=== PATIENT | female | born 1980 | race Caucasian/White ===

== ENCOUNTER 2017-04-24 00:11 | Emergency (ER) | payer OTHER ==
[~2017-04-24] VITALS: Ht 175.2 cm; Wt 181.4 kg
[~2017-04-24 00:11] MED LIST: AMOXICILLIN500 M2 PO; AMOXICILLIN500 MG PO; AMOXIL500 MG PO; ATARAX25 MG PO; AUGMENTIN 875875 MG PO; BACTRIM DS 8001 TA1 PO; CLINDAMYCIN150 MG PO; DAILY MULTIPLE1 TA6 PO; DIFLUCAN150 MG PO; ELIMITE 5%60 GM T; FLEXERIL10 MG PO; FLONASE 0.05% 121 EA NAS; FLONASE ALLERG9.9 ML NS; FLONASE0.05 MG/AC NS; FLUONAZOLE200 M1 PO; HYDROCODONE BIT1 T11 PO; K-TAB20 MEQ PO; KEFLEX500 MG PO; LASIX40 MG PO; MACROBID100 M1 PO; MOTRIN800 MG PO; MULTIVITAMIN FO1 CAP PO; MYCOLOG CREAM 115 GM T; NYSTATIN AND TR1 CRE T; OMEPRAZOLE40 MG PO; PHENERGAN25 M1 PO; PREDNICOT20 MG PO; PREDNISONE10 MG PO; PREDNISONE20 M1 PO; PRILOSEC40 MG PO; ROBITUSSIN DM 105 ML PO; ROBITUSSIN-AC 160 ML PO; TORADOL10 MG PO; ULTRAM50 MG PO; VIBRAMYCIN100 MG PO; VISTARIL50 MG PO; VITAMIN D32000 IU PO; ZANTAC 7575 M1 PO; ZITHROMAX Z PA250 MG PO; ZYRTEC10 M1 PO
[2017-04-24 00:16] VITALS: BP 144/79
[2017-04-24 00:53] LABS: BASO % 0.3 % (0.0-1.0); EOS # 0.1 10*3/uL (0.0-0.4); EOS % 1.1 % (1.0-4.0); HEMATOCRIT 49.2 % (37.0-47.0); LYMPH # 1.3 10*3/uL (1.3-4.4); LYMPH % 10.5 % (27.0-41.0); MEAN CELL VOLUME 92.3 fl (81.0-99.0); MEAN CORPUSCULAR HGB CONC 32.5 g/dl (33.0-37.0); MEAN PLATELET VOLUME 11.5 fl (9.6-12.3); MONO # 0.8 10*3/uL (0.1-1.0); MONO % 6.4 % (3.0-9.0); NEUT # 9.8 10*3/uL (2.3-7.9); NEUT % 81.4 % (47.0-73.0); PLATELET COUNT AUTOMATED 210 10*3/uL (130-400); RED BLOOD COUNT 5.33 10*6/uL (4.10-5.10); RED CELL DISTRI WIDTH 14.3 % (0-14.5)
[2017-04-24 01:14] LABS: ALBUMIN 3.4 gm/dl (3.1-4.5); ALKALINE PHOSPHATASE 60 U/L (45-117); BILIRUBIN, TOTAL 0.3 mg/dl (0.2-1.0); BUN 19 mg/dl (7-24); CARBON DIOXIDE 29 mmol/L (21-32); CHLORIDE 106 mmol/L (98-107); EST GLOM FILT AFRICAN AMERICAN > 60 ml/min; GLUCOSE 114 mg/dL (65-99); POTASSIUM 3.7 mmol/L (3.5-5.1); SGOT/AST 13 IU/L (3-35); SGPT/ALT 21 U/L (12-78); SODIUM 141 mmol/L (136-145)
[2017-04-24] MEDS ORDERED: ZOFRAN ODT4 MG SL (01:48)
== END 2017-04-24 03:31 | disposition home or self-care (01) ==
LOC: ED 00:11
PROVIDERS: Physician Assistant
DX: K52.9 Noninfective gastroenteritis and colitis, unspecified (principal); K21.9 Gastro-esophageal reflux disease without esophagitis; F17.200 Nicotine dependence, unspecified, uncomplicated; Z90.49 Acquired absence of other specified parts of digestive tract

== ENCOUNTER 2018-01-26 09:31 | Emergency (ER) | payer OTHER ==
[~2018-01-26] VITALS: Ht 175.2 cm; Wt 215.5 kg
[~2018-01-26 09:31] MED LIST changes: +ZOFRAN ODT4 MG SL
[2018-01-26] MEDS ORDERED: WELLBUTRIN XL150 MG PO (09:43)
[2018-01-26] MEDS ORDERED: HYDR25T PO (09:44)
[2018-01-26 11:28] LABS: BILIRUBIN 1+ (NEGATIVE); BLOOD TRACE-INTACT (NEGATIVE); CLARITY CLEAR (CLEAR); COLOR YELLOW (YELLOW); GLUCOSE NEGATIVE (NEGATIVE); KETONE TRACE (NEGATIVE); LEUKO ESTERASE TRACE (NEGATIVE); NITRITE NEGATIVE (NEGATIVE); SPECIFIC GRAVITY 1.025 (1.005-1.030); UROBILINOGEN 0.2 E.U./dl (0.2-1.0)
[2018-01-26 11:36] LABS: BACTERIA 2+; EPITHELIAL CELLS 16-20; MUCOUS 2+
[2018-01-26] MEDS ORDERED: NAPROSYN500 MG PO (11:58)
[2018-01-26] MEDS ORDERED: CYCLOBENZAPRINE10 MG PO (11:58)
[2018-01-26] MEDS ORDERED: MACROBID100 M1 PO (11:58)
[2018-01-26 12:03] VITALS: BP 149/80
== END 2018-01-26 12:49 | disposition home or self-care (01) ==
LOC: ED 09:31
PROVIDERS: Nurse Practitioner Family
DX: S39.012A Strain of muscle, fascia and tendon of lower back, initial encounter (principal); N39.0 Urinary tract infection, site not specified; Z90.49 Acquired absence of other specified parts of digestive tract; X58.XXXA Exposure to other specified factors, initial encounter; Y93.89 Activity, other specified; Y92.89 Other specified places as the place of occurrence of the external cause; Y99.8 Other external cause status

== ENCOUNTER → 2018-12-15 | Outpatient (CLI) | payer OTHER ==
[~2018-12-15] MED LIST changes: +CYCLOBENZAPRINE10 MG PO; +HYDR25T PO; +NAPROSYN500 MG PO; +WELLBUTRIN XL150 MG PO
== END | disposition home or self-care (01) ==
LOC: MAMMO 08:16
DX: Z12.31 Encounter for screening mammogram for malignant neoplasm of breast (principal); K21.9 Gastro-esophageal reflux disease without esophagitis

== ENCOUNTER → 2019-01-27 | Outpatient (CLI) | payer OTHER | END | disposition home or self-care (01) | LOC: CARD 01-19 10:30 | DX: R01.1 Cardiac murmur, unspecified (principal) ==

== ENCOUNTER → 2019-12-08 | Outpatient (CLI) | payer OTHER | END | disposition home or self-care (01) | LOC: US 09:51 | DX: R22.41 Localized swelling, mass and lump, right lower limb (principal) ==

== ENCOUNTER → 2020-03-08 | Outpatient (CLI) | payer OTHER ==
[~2020-03-08] MED LIST changes: +FUROSEMIDE40 MG PO; +POTASSIUM CHLO20 ME4 PO
== END | disposition home or self-care (01) ==
LOC: COVID19 00:19
DX: Z01.818 Encounter for other preprocedural examination (principal); Z11.59 Encounter for screening for other viral diseases

== ENCOUNTER → 2020-03-15 | Day surgery (SDC) | payer OTHER ==
[~2020-03-15] VITALS: Ht 177.8 cm; Wt 231.3 kg
[~2020-03-15] MED LIST changes: +NORCO 5-325 TA1 EACH PO
[2020-03-15 08:29] VITALS: BP 123/58
[2020-03-15 09:24] VITALS: BP 117/69
[2020-03-15 09:39] VITALS: BP 117/69
[2020-03-15 09:54] VITALS: BP 140/56
== END | disposition home or self-care (01) ==
LOC: SDC 03-12 13:15
DX: D21.21 Benign neoplasm of connective and other soft tissue of right lower limb, including hip (principal); I10 Essential (primary) hypertension; G47.30 Sleep apnea, unspecified; K21.9 Gastro-esophageal reflux disease without esophagitis; F32.9 Major depressive disorder, single episode, unspecified; F17.210 Nicotine dependence, cigarettes, uncomplicated; E66.01 Morbid (severe) obesity due to excess calories; Z68.45 Body mass index [BMI] 70 or greater, adult; Z98.890 Other specified postprocedural states; Z90.49 Acquired absence of other specified parts of digestive tract; Z79.899 Other long term (current) drug therapy

== ENCOUNTER → 2021-06-04 | Outpatient (CLI) | payer OTHER ==
[2021-06-04 12:59] LABS: HEMATOCRIT 47.4 % (37.0-47.0); MEAN CELL VOLUME 94.8 fl (81.0-99.0); MEAN CORPUSCULAR HGB 29.6 pg (27.0-31.0); MEAN CORPUSCULAR HGB CONC 31.2 g/dl (33.0-37.0); MEAN PLATELET VOLUME 11.7 fl (9.6-12.3); RED CELL DISTRI WIDTH 15.4 % (0-14.5); WHITE BLOOD COUNT 9.5 10*3/uL (4.8-10.8)
[2021-06-04 13:20] LABS: ALKALINE PHOSPHATASE 62 U/L (45-117); BUN 17 mg/dl (7-24); CHLORIDE 103 mmol/L (98-107); CREATININE 0.79 mg/dL (0.55-1.02); POTASSIUM 3.7 mmol/L (3.5-5.1); SGOT/AST 12 IU/L (3-35); SGPT/ALT 22 U/L (12-78); SODIUM 139 mmol/L (136-145); TOTAL PROTEIN 7.4 gm/dL (6.4-8.2)
[2021-06-04 13:22] LABS: BETA-HCG, QUANT < 1.0 mIU/mL (1-3)
== END | disposition home or self-care (01) ==
LOC: LAB 11:57
PROVIDERS: ATTEND Obstetrics & Gynecology
DX: Z01.812 Encounter for preprocedural laboratory examination (principal); N93.9 Abnormal uterine and vaginal bleeding, unspecified

== ENCOUNTER 2021-12-23 11:58 | Emergency (ER) | payer OTHER ==
[~2021-12-23] VITALS: Ht 175.2 cm; Wt 231.3 kg
[2021-12-23 12:14] VITALS: BP 152/87
[2021-12-23 12:46] LABS: BASO % 0.5 % (0.0-1.0); EOS # 0.1 10*3/uL (0.0-0.4); EOS % 1.3 % (1.0-4.0); HEMATOCRIT 47.2 % (37.0-47.0); LYMPH # 2.3 10*3/uL (1.3-4.4); MEAN CELL VOLUME 89.9 fl (81.0-99.0); MEAN CORPUSCULAR HGB 26.9 pg (27.0-31.0); MEAN CORPUSCULAR HGB CONC 29.9 g/dl (33.0-37.0); MEAN PLATELET VOLUME 10.9 fl (9.6-12.3); MONO # 0.6 10*3/uL (0.1-1.0); MONO % 7.4 % (3.0-9.0); NEUT # 4.8 10*3/uL (2.3-7.9); NEUT % 61.7 % (47.0-73.0); PLATELET COUNT AUTOMATED 225 10*3/uL (130-400); RED BLOOD COUNT 5.25 10*6/uL (4.10-5.10); RED CELL DISTRI WIDTH 18.2 % (0-14.5); WHITE BLOOD COUNT 7.8 10*3/uL (4.8-10.8)
[2021-12-23 13:05] LABS: ALKALINE PHOSPHATASE 83 U/L (45-117); BUN 20 mg/dl (7-24); CHLORIDE 101 mmol/L (98-107); CREATININE 1.12 mg/dL (0.55-1.02); POTASSIUM 3.3 mmol/L (3.5-5.1); SGOT/AST 20 IU/L (3-35); SGPT/ALT 21 U/L (12-78); SODIUM 140 mmol/L (136-145); TOTAL PROTEIN 7.5 gm/dL (6.4-8.2)
[2021-12-23] MEDS ORDERED: CEPHALEXIN500 M1 PO (17:33)
== END 2021-12-23 17:37 | disposition home or self-care (01) ==
LOC: ED 11:58
PROVIDERS: Physician Assistant
DX: L03.115 Cellulitis of right lower limb (principal); Z79.899 Other long term (current) drug therapy; Z90.49 Acquired absence of other specified parts of digestive tract; Z87.891 Personal history of nicotine dependence; Z90.89 Acquired absence of other organs

== ENCOUNTER → 2022-07-16 | Outpatient (CLI) | payer OTHER ==
[~2022-07-16] MED LIST changes: +CEPHALEXIN500 M1 PO
[2022-07-16 12:14] LABS: HEMATOCRIT 50.9 % (37.0-47.0); MEAN CORPUSCULAR HGB 31.8 pg (27.0-31.0); MEAN CORPUSCULAR HGB CONC 31.8 g/dl (33.0-37.0); MEAN PLATELET VOLUME 12.1 fl (9.6-12.3); RED BLOOD COUNT 5.09 10*6/uL (4.10-5.10); RED CELL DISTRI WIDTH 13.4 % (0-14.5); WHITE BLOOD COUNT 6.4 10*3/uL (4.8-10.8)
[2022-07-16 12:31] LABS: ALKALINE PHOSPHATASE 62 U/L (45-117); BUN 24 mg/dl (7-24); CHLORIDE 105 mmol/L (98-107); CHOLESTEROL 155 mg/dL (<200); CREATININE 0.83 mg/dL (0.55-1.02); POTASSIUM 3.4 mmol/L (3.5-5.1); SGOT/AST 13 IU/L (3-35); SGPT/ALT 23 U/L (12-78); SODIUM 141 mmol/L (136-145); TOTAL PROTEIN 7.8 gm/dL (6.4-8.2); TRIGLYCERIDES 80 mg/dl (<150)
[2022-07-16 12:33] LABS: LDL CHOLESTEROL 85 mg/dL (9-159)
[2022-07-17 15:05] LABS: ANTICARDIOLIPIN AB, IGG, QN <9 GPL U/mL (0-14); ANTICARDIOLIPIN AB, IGM, QN <9 MPL U/mL (0-12); CARDIOLIPIN AB IGA <9 APL U/mL (0-11)
[2022-07-18 11:06] LABS: ACTIVATED PROTEIN C 2.9 ratio (2.2-3.5); ANTI-THROMBIN III ACTIVITY 109 % (75-135); LUPUS REFLEX INTERPRETATION Comment: (.); PLASMIN0GEN ACTIVITY 121 % (70-150); PROTEIN S, FREE 66 % (61-136); PTT-LA 33.5 sec (0.0-51.9)
[2022-07-19 15:05] LABS: BETA-2 GLYCOPROTEIN I AB,IGA 41 (0-25); BETA-2 GLYCOPROTEIN I AB,IGG <9 (0-20); BETA-2 GLYCOPROTEIN I AB,IGM <9 (0-32)
== END ==
LOC: CARD 07-02 10:30 → MAMMO 07-02 11:30 → LAB 10:13
PROVIDERS: ATTEND Physician Assistant
DX: Z12.31 Encounter for screening mammogram for malignant neoplasm of breast (principal); I10 Essential (primary) hypertension; G89.29 Other chronic pain; M25.562 Pain in left knee; M25.561 Pain in right knee; G44.83 Primary cough headache; E66.09 Other obesity due to excess calories; R01.1 Cardiac murmur, unspecified; Z82.49 Family history of ischemic heart disease and other diseases of the circulatory system

== ENCOUNTER → 2023-12-15 | Outpatient (CLI) | payer OTHER | END | disposition home or self-care (01) | LOC: WOUNDCARE 01:42 | PROVIDERS: ATTEND Nurse Practitioner Family | DX: L03.317 Cellulitis of buttock (principal); L98.412 Non-pressure chronic ulcer of buttock with fat layer exposed; L53.9 Erythematous condition, unspecified; K21.9 Gastro-esophageal reflux disease without esophagitis; I10 Essential (primary) hypertension; G47.33 Obstructive sleep apnea (adult) (pediatric); E66.01 Morbid (severe) obesity due to excess calories; F17.210 Nicotine dependence, cigarettes, uncomplicated; Z68.44 Body mass index [BMI] 60.0-69.9, adult; Z90.49 Acquired absence of other specified parts of digestive tract ==

== ENCOUNTER → 2023-12-24 | Outpatient (CLI) | payer OTHER | END | disposition home or self-care (01) | LOC: WOUNDCARE 02:40 | PROVIDERS: ATTEND Nurse Practitioner Family | DX: L03.317 Cellulitis of buttock (principal); L98.412 Non-pressure chronic ulcer of buttock with fat layer exposed; I10 Essential (primary) hypertension; I89.0 Lymphedema, not elsewhere classified; K21.9 Gastro-esophageal reflux disease without esophagitis; L53.9 Erythematous condition, unspecified; G47.33 Obstructive sleep apnea (adult) (pediatric); E66.01 Morbid (severe) obesity due to excess calories; F17.210 Nicotine dependence, cigarettes, uncomplicated; Z68.44 Body mass index [BMI] 60.0-69.9, adult; Z90.49 Acquired absence of other specified parts of digestive tract; Z79.899 Other long term (current) drug therapy ==

== ENCOUNTER → 2023-12-31 | Outpatient (CLI) | payer OTHER | END | disposition home or self-care (01) | LOC: WOUNDCARE 00:53 | PROVIDERS: ATTEND Nurse Practitioner Family | DX: L03.317 Cellulitis of buttock (principal); L98.412 Non-pressure chronic ulcer of buttock with fat layer exposed; I10 Essential (primary) hypertension; I89.0 Lymphedema, not elsewhere classified; K21.9 Gastro-esophageal reflux disease without esophagitis; L53.9 Erythematous condition, unspecified; G47.33 Obstructive sleep apnea (adult) (pediatric); E66.01 Morbid (severe) obesity due to excess calories; F17.210 Nicotine dependence, cigarettes, uncomplicated; Z68.44 Body mass index [BMI] 60.0-69.9, adult; Z90.49 Acquired absence of other specified parts of digestive tract; Z79.899 Other long term (current) drug therapy ==

== ENCOUNTER → 2024-01-07 | Outpatient (CLI) | payer OTHER ==
[~2024-01-07] MED LIST changes: +PROGESTERONE200 M2 PO
== END | disposition home or self-care (01) ==
LOC: WOUNDCARE 00:46
PROVIDERS: ATTEND Nurse Practitioner Family
DX: L03.317 Cellulitis of buttock (principal); L98.412 Non-pressure chronic ulcer of buttock with fat layer exposed; I10 Essential (primary) hypertension; I89.0 Lymphedema, not elsewhere classified; K21.9 Gastro-esophageal reflux disease without esophagitis; L53.9 Erythematous condition, unspecified; G47.33 Obstructive sleep apnea (adult) (pediatric); E66.01 Morbid (severe) obesity due to excess calories; F17.210 Nicotine dependence, cigarettes, uncomplicated; Z68.44 Body mass index [BMI] 60.0-69.9, adult; Z90.49 Acquired absence of other specified parts of digestive tract; Z79.899 Other long term (current) drug therapy

== ENCOUNTER 2024-01-08 14:08 | Emergency (ER) | payer OTHER ==
[~2024-01-08] VITALS: Ht 175.2 cm; Wt 217.7 kg
[~2024-01-08 14:08] MED LIST changes: -PROGESTERONE200 M2 PO
[2024-01-08 14:25] VITALS: BP 151/82
[2024-01-08] MEDS ORDERED: PROGESTERONE200 M2 PO (14:26)
[2024-01-08 15:05] LABS: BASO % 0.7 % (0.0-1.0); EOS # 0.1 10*3/uL (0.0-0.4); HEMATOCRIT 42.4 % (37.0-47.0); LYMPH # 1.6 10*3/uL (1.3-4.4); MEAN CELL VOLUME 98.1 fl (81.0-99.0); MEAN CORPUSCULAR HGB 29.9 pg (27.0-31.0); MEAN CORPUSCULAR HGB CONC 30.4 g/dl (33.0-37.0); MEAN PLATELET VOLUME 10.8 fl (9.6-12.3); MONO # 0.4 10*3/uL (0.1-1.0); MONO % 6.8 % (3.0-9.0); NEUT # 3.9 10*3/uL (2.3-7.9); NEUT % 63.3 % (47.0-73.0); PLATELET COUNT AUTOMATED 187 10*3/uL (130-400); RED BLOOD COUNT 4.32 10*6/uL (4.10-5.10); RED CELL DISTRI WIDTH 14.4 % (0-14.5); WHITE BLOOD COUNT 6.1 10*3/uL (4.8-10.8)
[2024-01-08 15:22] LABS: BUN 17 mg/dl (9-23); CHLORIDE 103 mmol/L (98-107); POTASSIUM 3.9 mmol/L (3.4-5.1)
[2024-01-08] MEDS ORDERED: FUROSEMIDE 20 MG TAB PO ONE (16:50)
== END 2024-01-08 17:02 | disposition home or self-care (01) ==
LOC: ED 14:08
PROVIDERS: Nurse Practitioner Family
DX: I50.9 Heart failure, unspecified (principal); K21.9 Gastro-esophageal reflux disease without esophagitis; I10 Essential (primary) hypertension; Z90.49 Acquired absence of other specified parts of digestive tract; Z98.890 Other specified postprocedural states; F17.200 Nicotine dependence, unspecified, uncomplicated

== ENCOUNTER 2024-09-27 09:31 | Inpatient (IN) | payer OTHER ==
[~2024-09-27] VITALS: Ht 175 cm; Wt 214.0 kg
[~2024-09-27 09:31] MED LIST changes: +PROGESTERONE200 M2 PO
[2024-09-27 09:38] VITALS: BP 171/88
[2024-09-27 10:02] LABS: BASO % 0.2 % (0.0-1.0); EOS % 0.3 % (1.0-4.0); HEMATOCRIT 45.4 % (37.0-47.0); MEAN CELL VOLUME 95.2 fl (81.0-99.0); MEAN CORPUSCULAR HGB CONC 31.5 g/dl (33.0-37.0); MONO # 0.5 10*3/uL (0.1-1.0); MONO % 5.3 % (3.0-9.0); NEUT # 7.5 10*3/uL (2.3-7.9); NEUT % 78.4 % (47.0-73.0); PLATELET COUNT AUTOMATED 219 10*3/uL (130-400); RED BLOOD COUNT 4.77 10*6/uL (4.10-5.10); RED CELL DISTRI WIDTH 13.7 % (0-14.5); WHITE BLOOD COUNT 9.6 10*3/uL (4.8-10.8)
[2024-09-27 10:33] LABS: BUN 33 mg/dl (9-23); CHLORIDE 97 mmol/L (98-107); POTASSIUM 2.7 mmol/L (3.4-5.1)
[2024-09-27] MEDS ORDERED: Albuterol Sulf/Ipratropium 3 ML VIAL NEB ONE (11:30)
[2024-09-27 11:32] LABS: ABG BASE EXCESS 9.6 mmol/L (-2.0-3.0); ABG O2 SATURATION 92.4 % (94.0-98.0); ARTERIAL BLOOD GAS PH 7.439 (7.350-7.450); ARTERIAL BLOOD GAS PO2 64.5 mmHg (83.0-108.0)
[2024-09-27 12:00] VITALS: BP 150/67
[2024-09-27] MEDS ORDERED: FUROSEMIDE 40 MG/4 ML VIAL IV ONE (14:00)
[2024-09-27] MEDS ORDERED: POTASSIUM CHLORIDE 20 MEQ TAB PO ONE ×3 (14:25→23:00)
[2024-09-27] MEDS ORDERED: MELOXICAM15 MG PO (14:45)
[2024-09-27] MEDS ORDERED: Ondansetron Hydrochloride 4 MG/2 ML VIAL IV PRN (14:55)
[2024-09-27] MEDS ORDERED: POTASSIUM CHLORIDE IN WATER 100 ML IV SCH (15:00)
[2024-09-27] MEDS ORDERED: Albuterol Sulf/Ipratropium 3 ML VIAL NEB SCH (15:35)
[2024-09-27] MEDS ORDERED: SODIUM CHLORIDE 0.9% 100 ML BAG IV ONE (15:35)
[2024-09-27] MEDS ORDERED: IOHEXOL 350 MG/ML 100 ML VIAL IV ONE (15:35)
[2024-09-27] MEDS ORDERED: methylPREDNISolone sod succ 40 MG VIAL IV SCH (15:49)
[2024-09-27] MEDS ORDERED: methylPREDNISolone sod succ 40 MG IV SCH (15:50)
[2024-09-27] MEDS ORDERED: AZITHROMYCIN 250 ML IV SCH (16:00)
[2024-09-27] MEDS ORDERED: Ceftriaxone Sodium 2 GM in SYRINGE INFUSION 20 ML IV SCH (16:00)
[2024-09-27 16:45] VITALS: BP 150/67
[2024-09-27 20:00] VITALS: BP 145/63
[2024-09-27] MEDS ORDERED: GUAIFENESIN 600 MG TAB ER PO SCH (22:00)
[2024-09-27] MEDS ORDERED: methylPREDNISolone sod succ 125 MG VIAL IV SCH (22:00)
[2024-09-28] VITALS: BP 146/65
[2024-09-28 00:01] LABS: BUN 31 mg/dl (9-23); CHLORIDE 97 mmol/L (98-107); POTASSIUM 3.3 mmol/L (3.4-5.1)
[2024-09-28] MEDS ORDERED: OMEPRAZOLE 20 MG CAP PO SCH (06:00)
[2024-09-28 06:53] LABS: BASO % 0.1 % (0.0-1.0); HEMATOCRIT 45.3 % (37.0-47.0); MEAN CELL VOLUME 95.6 fl (81.0-99.0); MEAN CORPUSCULAR HGB 29.7 pg (27.0-31.0); MEAN CORPUSCULAR HGB CONC 31.1 g/dl (33.0-37.0); MEAN PLATELET VOLUME 11.7 fl (9.6-12.3); MONO # 0.5 10*3/uL (0.1-1.0); MONO % 5.7 % (3.0-9.0); PLATELET COUNT AUTOMATED 241 10*3/uL (130-400); RED BLOOD COUNT 4.74 10*6/uL (4.10-5.10); RED CELL DISTRI WIDTH 13.7 % (0-14.5); WHITE BLOOD COUNT 8.1 10*3/uL (4.8-10.8)
[2024-09-28 06:57] LABS: ALKALINE PHOSPHATASE 65 U/L (46-116); BUN 26 mg/dl (9-23); CHLORIDE 96 mmol/L (98-107); CHOLESTEROL 150 mg/dL (<200); FREE T4 1.37 ng/dl (0.89-1.76); LDL CHOLESTEROL 92 mg/dL (9-159); POTASSIUM 3.1 mmol/L (3.4-5.1); SGPT/ALT 15 U/L (5-49); TRIGLYCERIDES 71 mg/dl (<150)
[2024-09-28] MEDS ORDERED: POTASSIUM CHLORIDE 20 MEQ TAB PO ONE ×2 (07:30→22:00)
[2024-09-28 08:00] VITALS: BP 140/72
[2024-09-28 08:01] LABS: VITAMIN D, 25-HYDROXY 49.4 ng/mL (30-100)
[2024-09-28] MEDS ORDERED: Enoxaparin Sodium 40 MG/0.4 ML SYR SC SCH (10:00)
[2024-09-28] MEDS ORDERED: FUROSEMIDE 40 MG/4 ML VIAL IV SCH (10:00)
[2024-09-28] MEDS ORDERED: FUROSEMIDE 20 MG/2 ML VIAL IV SCH (10:00)
[2024-09-28] MEDS ORDERED: buPROPion XL 150 MG TAB PO SCH (10:00)
[2024-09-28] MEDS ORDERED: POTASSIUM CHLORIDE 20 MEQ TAB PO SCH (10:00)
[2024-09-28] MEDS ORDERED: HYDROCHLOROTHIAZIDE 25 MG TAB PO SCH (10:00)
[2024-09-28 12:00] VITALS: BP 152/69
[2024-09-28] MEDS ORDERED: PERFLUTREN PROTEIN-A MICROSPHR 3 ML VIAL IV ONE (13:55)
[2024-09-28 16:00] VITALS: BP 145/74
[2024-09-28 20:00] VITALS: BP 129/54
[2024-09-28] MEDS ORDERED: Meloxicam 15 MG TAB PO SCH (21:25)
[2024-09-28] MEDS ORDERED: methylPREDNISolone sod succ 40 MG VIAL IV SCH (22:00)
[2024-09-29] VITALS: BP 150/69
[2024-09-29 06:52] LABS: BUN 21 mg/dl (9-23); CHLORIDE 99 mmol/L (98-107)
[2024-09-29 07:45] LABS: POTASSIUM 4.1 mmol/L (3.4-5.1)
[2024-09-29 08:00] VITALS: BP 140/72
[2024-09-29 08:30] LABS: BASO % 0.1 % (0.0-1.0); HEMATOCRIT 46.2 % (37.0-47.0); MEAN CELL VOLUME 94.9 fl (81.0-99.0); MEAN CORPUSCULAR HGB 29.6 pg (27.0-31.0); MEAN CORPUSCULAR HGB CONC 31.2 g/dl (33.0-37.0); MEAN PLATELET VOLUME 11.1 fl (9.6-12.3); MONO # 0.8 10*3/uL (0.1-1.0); MONO % 8.4 % (3.0-9.0); NEUT # 6.2 10*3/uL (2.3-7.9); NEUT % 66.7 % (47.0-73.0); PLATELET COUNT AUTOMATED 215 10*3/uL (130-400); RED BLOOD COUNT 4.87 10*6/uL (4.10-5.10); RED CELL DISTRI WIDTH 13.9 % (0-14.5); WHITE BLOOD COUNT 9.2 10*3/uL (4.8-10.8)
[2024-09-29 08:59] LABS: BUN 24 mg/dl (9-23); CHLORIDE 98 mmol/L (98-107); POTASSIUM 3.7 mmol/L (3.4-5.1)
[2024-09-29] MEDS ORDERED: Meloxicam 15 MG TAB PO SCH (10:00)
[2024-09-29 12:00] VITALS: BP 136/72
[2024-09-29 16:00] VITALS: BP 146/67
[2024-09-29 20:00] VITALS: BP 133/61
[2024-09-30] VITALS: BP 130/67
[2024-09-30 08:00] VITALS: BP 139/74
[2024-09-30 12:00] VITALS: BP 131/66
[2024-09-30] MEDS ORDERED: ZITHROMAX250 MG PO (12:15)
[2024-09-30] MEDS ORDERED: MUCUS RELIEF E600 MG PO (12:15)
[2024-09-30] MEDS ORDERED: PREDNISONE10 MG PO (12:16)
[2024-09-30] MEDS ORDERED: VENT7GM INH (12:42)
== END 2024-09-30 17:03 | disposition home or self-care (01) | DRG 193 ==
LOC: ED 09:31 → EDHOLD 14:23 → 4E 14:23 → EDHOLD 15:12 → 4E 15:48
PROVIDERS: Internal Medicine; Student in an Organized Health Care Education/Training Program; ADMIT Internal Medicine; ATTEND Internal Medicine
DX: J13 Pneumonia due to Streptococcus pneumoniae (principal); I50.31 Acute diastolic (congestive) heart failure; J96.22 Acute and chronic respiratory failure with hypercapnia; J96.21 Acute and chronic respiratory failure with hypoxia; Z68.45 Body mass index [BMI] 70 or greater, adult; I11.0 Hypertensive heart disease with heart failure; E87.6 Hypokalemia; J98.4 Other disorders of lung; R73.9 Hyperglycemia, unspecified; E87.8 Other disorders of electrolyte and fluid balance, not elsewhere classified; Z20.822 Contact with and (suspected) exposure to COVID-19; E66.01 Morbid (severe) obesity due to excess calories; K21.9 Gastro-esophageal reflux disease without esophagitis; Z79.899 Other long term (current) drug therapy; Z79.01 Long term (current) use of anticoagulants; Z79.2 Long term (current) use of antibiotics; Z90.49 Acquired absence of other specified parts of digestive tract; Z87.891 Personal history of nicotine dependence; Z82.49 Family history of ischemic heart disease and other diseases of the circulatory system

== ENCOUNTER 2024-11-23 16:46 | Inpatient (IN) | payer OTHER ==
[~2024-11-23] VITALS: Ht 167.6 cm; Wt 226.6 kg
[~2024-11-23 16:46] MED LIST changes: +MELOXICAM15 MG PO; +MUCUS RELIEF E600 MG PO; +VENT7GM INH; +ZITHROMAX250 MG PO
[2024-11-23 17:05] VITALS: BP 150/56
[2024-11-23 17:41] LABS: BASO % 0.5 % (0.0-1.0); EOS # 0.2 10*3/uL (0.0-0.4); EOS % 2.5 % (1.0-4.0); HEMATOCRIT 44.6 % (37.0-47.0); MEAN CELL VOLUME 93.7 fl (81.0-99.0); MEAN CORPUSCULAR HGB CONC 30.9 g/dl (33.0-37.0); MEAN PLATELET VOLUME 11.1 fl (9.6-12.3); MONO # 0.6 10*3/uL (0.1-1.0); MONO % 7.3 % (3.0-9.0); NEUT # 4.7 10*3/uL (2.3-7.9); NEUT % 57.9 % (47.0-73.0); PLATELET COUNT AUTOMATED 207 10*3/uL (130-400); RED BLOOD COUNT 4.76 10*6/uL (4.10-5.10); RED CELL DISTRI WIDTH 14.8 % (0-14.5); WHITE BLOOD COUNT 8.1 10*3/uL (4.8-10.8)
[2024-11-23 17:52] LABS: ACT PARTIAL THROMBO TIME 29.7 SECONDS (20.0-32.1)
[2024-11-23 17:59] LABS: ALKALINE PHOSPHATASE 54 U/L (46-116); BUN 14 mg/dl (9-23); CHLORIDE 100 mmol/L (98-107); CPK 42 U/L (34-171); LIPASE 36 U/L (12-53); POTASSIUM 3.3 mmol/L (3.4-5.1); SGPT/ALT 13 U/L (5-49); TOTAL PROTEIN 7.4 gm/dL (6.0-8.0)
[2024-11-23 18:02] LABS: FREE T4 1.25 ng/dl (0.89-1.76)
[2024-11-23 19:47] VITALS: BP 147/60
[2024-11-23] MEDS ORDERED: Ondansetron Hydrochloride 4 MG/2 ML VIAL IV PRN (20:10)
[2024-11-23] MEDS ORDERED: ACETAMINOPHEN 650 MG SUPP R PRN (20:10)
[2024-11-23] MEDS ORDERED: BISACODYL 5 MG TAB PO PRN (20:10)
[2024-11-23] MEDS ORDERED: Magnesium Hydroxide 30 ML UDC PO PRN (20:10)
[2024-11-23] MEDS ORDERED: ACETAMINOPHEN 325 MG TAB PO PRN (20:10)
[2024-11-23] MEDS ORDERED: BISACODYL 10 MG SUPP R PRN (20:10)
[2024-11-23] MEDS ORDERED: Albuterol Sulf/Ipratropium 3 ML VIAL NEB SCH (20:35)
[2024-11-23] MEDS ORDERED: SODIUM CHLORIDE 0.9% 1,000 ML IV SCH (20:50)
[2024-11-23] MEDS ORDERED: AZITHROMYCIN 250 ML IV SCH (21:00)
[2024-11-23] MEDS ORDERED: POTASSIUM CHLORIDE 20 MEQ TAB PO ONE (21:00)
[2024-11-23 21:30] VITALS: BP 144/59
[2024-11-23] MEDS ORDERED: cefTRIAXone Sodium 1 GM in SYRINGE INFUSION 10 ML IV SCH (22:00)
[2024-11-23] MEDS ORDERED: methylPREDNISolone sod succ 40 MG VIAL IV SCH (22:00)
[2024-11-23] MEDS ORDERED: IOHEXOL 350 MG/ML 100 ML VIAL IV ONE (22:35)
[2024-11-23] MEDS ORDERED: SODIUM CHLORIDE 0.9% 100 ML BAG IV ONE (22:35)
[2024-11-24] VITALS: BP 155/82
[2024-11-24 01:04] LABS: BILIRUBIN Negative (Negative); BLOOD Negative (Negative); CLARITY Clear (Clear); COLOR Yellow (Yellow); GLUCOSE Negative (Negative); KETONE Negative (Negative); LEUKO ESTERASE Negative (Negative); NITRITE Negative (Negative); PH 6.5 (4.5-8.0); SPECIFIC GRAVITY >= 1.030 (1.001-1.030); UROBILINOGEN 0.2 E.U./dl (0.0-1.0)
[2024-11-24 01:56] LABS: EPITHELIAL CELLS 21-30
[2024-11-24 01:57] LABS: WBC 0-2 wbc/hpf (0-5)
[2024-11-24 05:48] LABS: ALKALINE PHOSPHATASE 56 U/L (46-116); BUN 13 mg/dl (9-23); CHLORIDE 98 mmol/L (98-107); POTASSIUM 3.8 mmol/L (3.4-5.1); SGPT/ALT 15 U/L (5-49); TOTAL PROTEIN 7.6 gm/dL (6.0-8.0)
[2024-11-24] MEDS ORDERED: Pantoprazole Sodium 40 MG TAB PO SCH (06:00)
[2024-11-24 06:08] LABS: BASO % 0.4 % (0.0-1.0); EOS % 0.1 % (1.0-4.0); HEMATOCRIT 45.5 % (37.0-47.0); MEAN CELL VOLUME 93.6 fl (81.0-99.0); MEAN CORPUSCULAR HGB 29.4 pg (27.0-31.0); MEAN CORPUSCULAR HGB CONC 31.4 g/dl (33.0-37.0); MEAN PLATELET VOLUME 11.5 fl (9.6-12.3); MONO # 0.1 10*3/uL (0.1-1.0); MONO % 1.5 % (3.0-9.0); NEUT % 80.6 % (47.0-73.0); PLATELET COUNT AUTOMATED 215 10*3/uL (130-400); RED BLOOD COUNT 4.86 10*6/uL (4.10-5.10); RED CELL DISTRI WIDTH 14.9 % (0-14.5); WHITE BLOOD COUNT 7.4 10*3/uL (4.8-10.8)
[2024-11-24 08:00] VITALS: BP 131/71
[2024-11-24] MEDS ORDERED: FUROSEMIDE 40 MG IV SCH (10:00)
[2024-11-24] MEDS ORDERED: FUROSEMIDE 40 MG/4 ML VIAL IV SCH (10:00)
[2024-11-24] MEDS ORDERED: Meloxicam 15 MG TAB PO SCH (10:00)
[2024-11-24] MEDS ORDERED: Enoxaparin Sodium 40 MG/0.4 ML SYR SC SCH (10:00)
[2024-11-24] MEDS ORDERED: hydroCHLOROthiazide 25 MG TAB PO SCH (10:00)
[2024-11-24] MEDS ORDERED: FUROSEMIDE 40 MG TAB PO SCH (10:00)
[2024-11-24 12:00] VITALS: BP 149/85
[2024-11-24 16:00] VITALS: BP 138/79
[2024-11-24 20:00] VITALS: BP 123/61
[2024-11-24] MEDS ORDERED: hydrOXYzine pamoate 25 MG CAP PO ONE (22:50)
[2024-11-24] MEDS ORDERED: hydrOXYzine pamoate 25 MG CAP ONE (23:39)
[2024-11-25] VITALS: BP 120/49
[2024-11-25 06:33] LABS: BASO % 0.5 % (0.0-1.0); EOS # 0.1 10*3/uL (0.0-0.4); EOS % 0.9 % (1.0-4.0); HEMATOCRIT 39.9 % (37.0-47.0); MEAN CELL VOLUME 94.5 fl (81.0-99.0); MEAN CORPUSCULAR HGB 29.6 pg (27.0-31.0); MEAN CORPUSCULAR HGB CONC 31.3 g/dl (33.0-37.0); MEAN PLATELET VOLUME 11.4 fl (9.6-12.3); MONO # 0.6 10*3/uL (0.1-1.0); MONO % 7.3 % (3.0-9.0); NEUT # 5.1 10*3/uL (2.3-7.9); NEUT % 62.6 % (47.0-73.0); PLATELET COUNT AUTOMATED 192 10*3/uL (130-400); RED BLOOD COUNT 4.22 10*6/uL (4.10-5.10); RED CELL DISTRI WIDTH 15.3 % (0-14.5); WHITE BLOOD COUNT 8.2 10*3/uL (4.8-10.8)
[2024-11-25 07:27] LABS: BUN 15 mg/dl (9-23); CHLORIDE 99 mmol/L (98-107); POTASSIUM 3.2 mmol/L (3.4-5.1)
[2024-11-25 08:00] VITALS: BP 132/74
[2024-11-25] MEDS ORDERED: POTASSIUM CHLORIDE 20 MEQ TAB PO ONE (08:50)
[2024-11-25] MEDS ORDERED: methylPREDNISolone sod succ 40 MG VIAL IV SCH (10:00)
[2024-11-25 12:00] VITALS: BP 139/77
[2024-11-25] MEDS ORDERED: POTASSIUM CHLO20 ME4 PO (12:46)
[2024-11-25] MEDS ORDERED: FUROSEMIDE40 MG PO (12:46)
== END 2024-11-25 15:31 | disposition home or self-care (01) | DRG 871 ==
LOC: ED 16:46 → 4E 19:09 → EDHOLD 19:09 → 4E 20:20
PROVIDERS: Emergency Medicine; Student in an Organized Health Care Education/Training Program; ADMIT Student in an Organized Health Care Education/Training Program; ATTEND Student in an Organized Health Care Education/Training Program
DX: A41.9 Sepsis, unspecified organism (principal); I50.33 Acute on chronic diastolic (congestive) heart failure; J45.901 Unspecified asthma with (acute) exacerbation; E66.2 Morbid (severe) obesity with alveolar hypoventilation; J96.12 Chronic respiratory failure with hypercapnia; Z68.45 Body mass index [BMI] 70 or greater, adult; J98.4 Other disorders of lung; E87.6 Hypokalemia; G90.9 Disorder of the autonomic nervous system, unspecified; R73.9 Hyperglycemia, unspecified; Z20.822 Contact with and (suspected) exposure to COVID-19; F17.210 Nicotine dependence, cigarettes, uncomplicated; K21.9 Gastro-esophageal reflux disease without esophagitis; I89.0 Lymphedema, not elsewhere classified; I11.0 Hypertensive heart disease with heart failure; Z79.899 Other long term (current) drug therapy; Z71.6 Tobacco abuse counseling; Z79.01 Long term (current) use of anticoagulants; Z79.2 Long term (current) use of antibiotics; Z84.89 Family history of other specified conditions; Z90.49 Acquired absence of other specified parts of digestive tract

== ENCOUNTER → 2024-12-02 | Outpatient (CLI) | payer OTHER ==
[2024-12-02 13:06] LABS: BASO % 0.6 % (0.0-1.0); EOS # 0.2 10*3/uL (0.0-0.4); EOS % 3.1 % (1.0-4.0); HEMATOCRIT 43.5 % (37.0-47.0); MEAN CORPUSCULAR HGB 30.5 pg (27.0-31.0); MEAN CORPUSCULAR HGB CONC 32.4 g/dl (33.0-37.0); MEAN PLATELET VOLUME 10.6 fl (9.6-12.3); MONO # 0.4 10*3/uL (0.1-1.0); MONO % 6.8 % (3.0-9.0); NEUT # 3.8 10*3/uL (2.3-7.9); PLATELET COUNT AUTOMATED 185 10*3/uL (130-400); RED BLOOD COUNT 4.63 10*6/uL (4.10-5.10); RED CELL DISTRI WIDTH 15.2 % (0-14.5); WHITE BLOOD COUNT 6.5 10*3/uL (4.8-10.8)
[2024-12-02 13:35] LABS: ALKALINE PHOSPHATASE 52 U/L (46-116); BUN 12 mg/dl (9-23); CHLORIDE 102 mmol/L (98-107); POTASSIUM 3.8 mmol/L (3.4-5.1); SGPT/ALT 14 U/L (5-49); TOTAL PROTEIN 7.2 gm/dL (6.0-8.0)
[2024-12-02 14:02] LABS: ACT PARTIAL THROMBO TIME 28.3 SECONDS (20.0-32.1)
[2024-12-02 14:30] LABS: FIBRIN DEGRADATION PRODUCTS <5 ug/ml (< 5)
[2024-12-04 14:03] LABS: ANTI-THROMBIN III ACTIVITY 121 % (75-135)
[2024-12-04 15:03] LABS: DPT CONFIRM RATIO 1.18 Ratio (0.00-1.34); LUPUS DRVVT 73.1 sec (0.0-47.0); LUPUS REFLEX INTERPRETATION Comment: (.); PTT-LA 38.6 sec (0.0-43.5); THROMBIN TIME 18.2 sec (0.0-23.0)
[2024-12-05 12:04] LABS: ANTICARDIOLIPIN AB, IGG, QN <9 GPL U/mL (0-14); ANTICARDIOLIPIN AB, IGM, QN <9 MPL U/mL (0-12); CARDIOLIPIN AB IGA <9 APL U/mL (0-11)
[2024-12-06 16:04] LABS: PROTEIN C, ANTIGEN 86 % (60-150)
[2024-12-06 17:04] LABS: BETA-2 MICROGLOBULIN 3.1 mg/L (0.6-2.4)
== END | disposition home or self-care (01) ==
LOC: LAB 12:27
PROVIDERS: ATTEND Internal Medicine Hematology & Oncology
DX: D68.59 Other primary thrombophilia (principal)

== ENCOUNTER 2024-12-27 14:13 | Inpatient (IN) | payer OTHER ==
[~2024-12-27] VITALS: Ht 175.2 cm; Wt 225.9 kg
[2024-12-27 14:23] VITALS: BP 148/66
[2024-12-27] MEDS ORDERED: SYMB160 INH (14:27)
[2024-12-27] MEDS ORDERED: VENT7GM INH (14:27)
[2024-12-27] MEDS ORDERED: Albuterol Sulf/Ipratropium 3 ML VIAL NEB SCH (14:45)
[2024-12-27 14:54] LABS: BASO % 0.3 % (0.0-1.0); EOS # 0.2 10*3/uL (0.0-0.4); EOS % 3.4 % (1.0-4.0); HEMATOCRIT 41.6 % (37.0-47.0); MEAN CELL VOLUME 96.1 fl (81.0-99.0); MEAN CORPUSCULAR HGB 29.6 pg (27.0-31.0); MEAN CORPUSCULAR HGB CONC 30.8 g/dl (33.0-37.0); MEAN PLATELET VOLUME 10.8 fl (9.6-12.3); MONO # 0.4 10*3/uL (0.1-1.0); MONO % 7.4 % (3.0-9.0); NEUT # 3.3 10*3/uL (2.3-7.9); NEUT % 55.9 % (47.0-73.0); PLATELET COUNT AUTOMATED 174 10*3/uL (130-400); RED BLOOD COUNT 4.33 10*6/uL (4.10-5.10); RED CELL DISTRI WIDTH 15.3 % (0-14.5); WHITE BLOOD COUNT 5.9 10*3/uL (4.8-10.8)
[2024-12-27] MEDS ORDERED: FUROSEMIDE 40 MG/4 ML VIAL IV ONE (15:20)
[2024-12-27 15:30] LABS: ALKALINE PHOSPHATASE 58 U/L (46-116); BUN 15 mg/dl (9-23); CHLORIDE 100 mmol/L (98-107); LIPASE 33 U/L (12-53); POTASSIUM 3.6 mmol/L (3.4-5.1); SGPT/ALT 16 U/L (5-49)
[2024-12-27 15:42] LABS: VENOUS BLOOD GAS O2 SAT 95.4 % (60.0-85.0)
[2024-12-27] MEDS ORDERED: Ondansetron Hydrochloride 4 MG/2 ML VIAL IV PRN (15:45)
[2024-12-27 16:00] VITALS: BP 135/59
[2024-12-27] MEDS ORDERED: NEURONTIN300 MG PO (16:20)
[2024-12-27] MEDS ORDERED: TRAZODONE50 MG PO (16:21)
[2024-12-27 17:10] VITALS: BP 135/59
[2024-12-27] MEDS ORDERED: Albuterol Sulfate 2.5 MG/3 ML VIAL NEB PRN (18:15)
[2024-12-27] MEDS ORDERED: BUDESONIDE 0.5 MG AMP NEB SCH (18:19)
[2024-12-27] MEDS ORDERED: Albuterol Sulfate 2.5 MG/3 ML VIAL NEB SCH (18:20)
[2024-12-27 20:00] VITALS: BP 129/55
[2024-12-27] MEDS ORDERED: FUROSEMIDE 40 MG/4 ML VIAL IV SCH (20:00)
[2024-12-27] MEDS ORDERED: GABAPENTIN 300 MG CAP PO SCH (22:00)
[2024-12-27] MEDS ORDERED: traZODone Hydrochloride 50 MG TAB PO SCH (22:00)
[2024-12-28] VITALS: BP 127/61
[2024-12-28] MEDS ORDERED: OMEPRAZOLE 20 MG CAP PO SCH (06:00)
[2024-12-28 06:08] LABS: BASO % 0.7 % (0.0-1.0); EOS # 0.2 10*3/uL (0.0-0.4); EOS % 3.6 % (1.0-4.0); HEMATOCRIT 37.6 % (37.0-47.0); MEAN CELL VOLUME 97.9 fl (81.0-99.0); MEAN CORPUSCULAR HGB 29.4 pg (27.0-31.0); MEAN CORPUSCULAR HGB CONC 30.1 g/dl (33.0-37.0); MEAN PLATELET VOLUME 11.3 fl (9.6-12.3); MONO # 0.5 10*3/uL (0.1-1.0); MONO % 8.9 % (3.0-9.0); NEUT # 3.1 10*3/uL (2.3-7.9); NEUT % 53.5 % (47.0-73.0); PLATELET COUNT AUTOMATED 160 10*3/uL (130-400); RED BLOOD COUNT 3.84 10*6/uL (4.10-5.10); RED CELL DISTRI WIDTH 15.2 % (0-14.5); WHITE BLOOD COUNT 5.8 10*3/uL (4.8-10.8)
[2024-12-28 06:30] LABS: BUN 14 mg/dl (9-23); CHLORIDE 99 mmol/L (98-107); POTASSIUM 3.6 mmol/L (3.4-5.1)
[2024-12-28 08:00] VITALS: BP 121/55
[2024-12-28] MEDS ORDERED: Meloxicam 15 MG TAB PO SCH (10:00)
[2024-12-28] MEDS ORDERED: Enoxaparin Sodium 40 MG/0.4 ML SYR SC SCH (10:00)
[2024-12-28 12:00] VITALS: BP 122/65
[2024-12-28 16:00] VITALS: BP 112/60
[2024-12-28 20:00] VITALS: BP 145/64
[2024-12-29] VITALS: BP 130/48
[2024-12-29 06:30] LABS: BUN 13 mg/dl (9-23); CHLORIDE 99 mmol/L (98-107); POTASSIUM 3.5 mmol/L (3.4-5.1)
[2024-12-29 08:00] VITALS: BP 125/60
[2024-12-29] MEDS ORDERED: Doxycycline Hyclate 100 MG CAPSULE PO SCH (10:00)
[2024-12-29 12:00] VITALS: BP 121/61
[2024-12-29] MEDS ORDERED: DOXYCYCLINE MO100 MG PO (12:42)
== END 2024-12-29 16:20 | disposition home or self-care (01) | DRG 291 ==
LOC: ED 14:13 → EDHOLD 15:15 → 4E 15:15 → EDHOLD 15:54 → 4E 16:18
PROVIDERS: Internal Medicine; Student in an Organized Health Care Education/Training Program; ADMIT Student in an Organized Health Care Education/Training Program; ATTEND Student in an Organized Health Care Education/Training Program
DX: I11.0 Hypertensive heart disease with heart failure (principal); I50.33 Acute on chronic diastolic (congestive) heart failure; E66.2 Morbid (severe) obesity with alveolar hypoventilation; Z68.45 Body mass index [BMI] 70 or greater, adult; R73.9 Hyperglycemia, unspecified; J45.909 Unspecified asthma, uncomplicated; K21.9 Gastro-esophageal reflux disease without esophagitis; Z90.49 Acquired absence of other specified parts of digestive tract; Z87.891 Personal history of nicotine dependence; Z84.89 Family history of other specified conditions; Z71.6 Tobacco abuse counseling

== ENCOUNTER → 2025-02-13 | Outpatient (CLI) | payer OTHER ==
[~2025-02-13] MED LIST changes: +DOXYCYCLINE MO100 MG PO; +NEURONTIN300 MG PO; +SYMB160 INH; +TRAZODONE50 MG PO
[2025-02-13 12:56] LABS: BASO % 0.6 % (0.0-1.0); EOS # 0.2 10*3/uL (0.0-0.4); EOS % 3.9 % (1.0-4.0); MEAN CELL VOLUME 94.5 fl (81.0-99.0); MEAN CORPUSCULAR HGB 29.4 pg (27.0-31.0); MEAN CORPUSCULAR HGB CONC 31.1 g/dl (33.0-37.0); MEAN PLATELET VOLUME 11.7 fl (9.6-12.3); MONO # 0.4 10*3/uL (0.1-1.0); MONO % 8.2 % (3.0-9.0); NEUT # 2.1 10*3/uL (2.3-7.9); NEUT % 45.6 % (47.0-73.0); PLATELET COUNT AUTOMATED 157 10*3/uL (130-400); RED BLOOD COUNT 4.87 10*6/uL (4.10-5.10); RED CELL DISTRI WIDTH 13.6 % (0-14.5); WHITE BLOOD COUNT 4.7 10*3/uL (4.8-10.8)
[2025-02-13 13:14] LABS: URINE AMPHETAMINES Negative (1000ng/ml); URINE BARBITURATES Negative (200ng/ml); URINE BENZODIAZEPINES Negative (200ng/ml); URINE CANNABINOIDS (THC) Negative (50ng/ml); URINE COCAINE Negative (300ng/ml); URINE METHADONE Negative (300ng/ml); URINE OPIATES Negative (300ng/ml); URINE PHENCYCLIDINE Negative (25ng/ml)
[2025-02-13 13:48] LABS: VITAMIN D, 25-HYDROXY 46.1 ng/mL (30-100)
[2025-02-13 13:53] LABS: ALKALINE PHOSPHATASE 57 U/L (46-116); BUN 16 mg/dl (9-23); CHLORIDE 101 mmol/L (98-107); CHOLESTEROL 167 mg/dL (<200); LDL CHOLESTEROL 108 mg/dL (9-159); SGPT/ALT 11 U/L (5-49); TOTAL PROTEIN 6.9 gm/dL (6.0-8.0); TRIGLYCERIDES 55 mg/dl (<150)
== END | disposition home or self-care (01) ==
LOC: LAB 12:15
PROVIDERS: ATTEND Surgery
DX: E66.01 Morbid (severe) obesity due to excess calories (principal)

== ENCOUNTER → 2025-04-14 | Outpatient (CLI) | payer OTHER | END | disposition home or self-care (01) | LOC: LAB 13:00 | PROVIDERS: ATTEND Nurse Practitioner Adult Health | DX: Z13.89 Encounter for screening for other disorder (principal); E66.01 Morbid (severe) obesity due to excess calories ==

== ENCOUNTER → 2025-07-11 | Outpatient (CLI) | payer OTHER ==
[2025-07-13 08:08] LABS: DVVTMIXRFX CHG (NP); LUPUS DRVVT 76.8 sec (0.0-47.0); PTT-LA 45.4 sec (0.0-43.5); PTT-LA MIX 39.5 sec (0.0-40.5)
== END | disposition home or self-care (01) ==
LOC: LAB 10:32
PROVIDERS: ATTEND Internal Medicine Hematology & Oncology
DX: D68.59 Other primary thrombophilia (principal)

== ENCOUNTER → 2025-08-17 | Outpatient (CLI) | payer OTHER ==
[2025-08-17 17:34] LABS: BASO # 0.0 10*3/uL (0.0-0.1); BASO % 0.7 % (0.0-1.0); EOS # 0.1 10*3/uL (0.0-0.4); EOS % 1.9 % (1.0-4.0); MEAN CELL VOLUME 95.4 fl (81.0-99.0); MEAN CORPUSCULAR HGB 29.8 pg (27.0-31.0); MEAN PLATELET VOLUME 12.5 fl (9.6-12.3); MONO # 0.4 10*3/uL (0.1-1.0); MONO % 7.6 % (3.0-9.0); NEUT # 2.6 10*3/uL (2.3-7.9); NEUT % 44.1 % (47.0-73.0); NUCLEATED RED BLOOD CELL 0.0 % (0.0-0.0); NUCLEATED RED BLOOD CELL 0.0 10*3/uL (0.0-0.0); PLATELET COUNT AUTOMATED 149 10*3/uL (130-400); RED CELL DISTRI WIDTH 14.3 % (0-14.5)
[2025-08-17 18:28] LABS: BUN 12 mg/dl (9-23); SGPT/ALT 51 U/L (5-49); VITAMIN D, 25-HYDROXY 87.9 ng/mL (30-100)
== END | disposition home or self-care (01) ==
LOC: LAB 17:12
PROVIDERS: ATTEND Surgery
DX: K91.2 Postsurgical malabsorption, not elsewhere classified (principal)